=== PATIENT | female | born 1960 | race Caucasian/White ===

== ENCOUNTER 2022-08-30 09:34 | Emergency (ER) | payer OTHER ==
[~2022-08-30] VITALS: Ht 160 cm; Wt 75.0 kg
[2022-08-30 09:42] VITALS: BP 154/94
[2022-08-30] MEDS ORDERED: METH4TAB3 PO ×2 (10:18→11:55)
[2022-08-30] MEDS ORDERED: CEPH250T PO (10:18)
[2022-08-30] MEDS ORDERED: EPIN0.3P3 IM ×2 (10:24→11:55)
== END 2022-08-30 10:30 | disposition home or self-care (01) ==
LOC: ER 09:34
DX: T63.441A Toxic effect of venom of bees, accidental (unintentional), initial encounter (principal); L03.211 Cellulitis of face; R22.0 Localized swelling, mass and lump, head; Z88.2 Allergy status to sulfonamides; Z88.1 Allergy status to other antibiotic agents; Y93.89 Activity, other specified; Z79.899 Other long term (current) drug therapy
CPT/HCPCS: 99283